=== PATIENT | female | born 1975 | race African-American/Black ===

== ENCOUNTER 2018-07-06 14:06 | Emergency (ER) | payer MEDICAID ==
[~2018-07-06] VITALS: Ht 165.1 cm; Wt 70.0 kg
[2018-07-06 14:25] VITALS: BP 191/97
[2018-07-06] MEDS ORDERED: NAPROXEN 250MG TABLET PO ONE (18:15)
== END 2018-07-06 18:41 | disposition home or self-care (01) ==
LOC: ER 14:06
DX: M25.531 Pain in right wrist (principal); I10 Essential (primary) hypertension; Z88.3 Allergy status to other anti-infective agents
CPT/HCPCS: 29125; 99283